=== PATIENT | female | born 1995 | race Two or more races ===

== ENCOUNTER 2024-02-24 18:41 | Emergency (ER) | payer MEDICAID ==
[~2024-02-24] VITALS: Ht 144.8 cm; Wt 35.0 kg
[2024-02-24 18:53] VITALS: BP 124/82; PULSE 71; RESP 17; TEMP 99.1; O2SAT 98
[2024-02-24 19:58] LABS: Basophils # (auto) 0 10 ^3/uL (0-0.2); Basophils % (auto) 0.4 % (0.0-2.0); Eosinophils # (auto) 0 10 ^3/uL (0-0.8); Eosinophils % (auto) 0.4 % (0.0-7.0); Hematocrit 41.2 % (36.0-46.0); Hemoglobin 14.1 g/dL (12.2-16.2); Lymphocytes # (auto) 2.3 10 ^3/uL (0.4-5.4); Lymphocytes % (auto) 23.2 % (10.0-50.0); Mean Corpuscular Hemoglobin 32.3 pg (28.0-32.0); Mean Corpuscular Hgb Conc. 34.2 g/dL (32.0-36.0); Mean Corpuscular Volume 94.2 fL (80.0-100.0); Monocytes # (auto) 0.7 10 ^3/uL (0-1.3); Monocytes % (auto) 7.1 % (0.0-12.0); Neutrophils # (auto) 6.7 10 ^3/uL (1.6-8.6); Neutrophils % (auto) 68.9 % (37.0-80.0); Red Blood Cells 4.37 10^6/uL (4.0-5.20); White Blood Cell 9.8 10^3/uL (4.4-10.8)
[2024-02-24 20:08] LABS: Alanine Aminotransferase 16 U/L (7-40); Albumin 4.8 g/dL (3.2-4.8); Alkaline Phosphatase 45 U/L (46-116); Anion Gap 8 (5-15); Aspartate Aminotransferase 9 U/L (13-40); BUN/Creatinine Ratio 13.9 (10.0-20.0); Bilirubin, Total 0.4 mg/dL (0.2-1.0); Blood Urea Nitrogen 11 mg/dL (9-23); Calcium 9.9 mg/dL (8.7-10.4); Carbon Dioxide 26 mmol/L (20-30); Chloride 107 mmol/L (98-107); Glucose 89 mg/dL (74-106); Potassium 3.9 mmol/L (3.5-5.1); Sodium 141 mmol/L (136-145)
[2024-02-24 20:09] LABS: Total Protein 6.6 g/dL (5.7-8.2)
== END 2024-02-24 21:33 | disposition home or self-care (01) ==
LOC: ER 18:41
DX: M79.662 Pain in left lower leg (principal); Z88.2 Allergy status to sulfonamides
CPT/HCPCS: 36415; 80053; 83605; 85025; 85379; 93971

== ENCOUNTER 2025-04-16 18:58 | Emergency (ER) | payer MEDICAID ==
[~2025-04-16] VITALS: Ht 149.9 cm; Wt 36.0 kg
--- NOTE | 2025-04-16 19:46 | ED.PDOC ---
General HPI Comments 29y F who presents to the ED for chief complaint of abdominal pain. Pt states she has been having diffuse lower abdominal pain for the past 3x days. Pt states she has been having associated dysuria and burning sensation in her lower pelvic area with associated urinary frequency and incontinence. Pt states she went to urgent care for her symptoms and was referred to the ED for further evaluation. Pt states she had a UTI in January 2025 and states it was resistant to Macrobid but states it resolved after pt was given ciprofloxacin. Pt otherwise has noted BP of 111/56 and temp of 97.5 F with otherwise stable vitals of RR 19, heart rate 64 and 02 sat of 98% on room air. Pt otherwise denies nausea, vomiting, diarrhea, fever, cough, chills, hematuria or associated symptoms. Chief Complaint: Abdominal Pain Time Seen by MD: 19:44 Primary Care Provider: UNKNOWN Reviewed notes: Medications, Allergies Allergies: Coded Allergies: Acyclovir (Verified Allergy, Unknown, 04/16/25) Sulfa Antibiotics (Verified Allergy, Unknown, 02/24/24) Home Meds Active Scripts Phenazopyridine HCl (Phenazopyridine Hydrochlo) 200 Mg Tab, 200 MG PO TID PRN, #9 TAB Prn urinary pain Prov:BETHEL TOSCANO MD 04/16/25 Ibuprofen Micronized (Ibuprofen) 600 Mg Tab, 600 MG PO Q6HP PRN, #30 TAB Prn pain. Take with food. 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 Moist mucous membranes.) Neck: Full Range of Motion, Normal Inspection Respiratory: Lungs Clear, No Accessory Muscle Use, No Respiratory Distress, Normal Breath Sounds Cardiovascular: No Edema, No JVD, Regular Rate/Rhythm Breast Exam: Deferred Gastrointestinal: Diffuse, Soft, Tenderness Genitalia: Deferred Pelvic: Deferred Rectal: Deferred Extremities: Normal inspection, Normal range of motion, Non-tender, No pedal edema Neurologic: Alert (Oriented x4), Normal Affect, Normal Mood, Other (Ambulatory) Cerebellar Function: NOT DONE Reflexes: NOT DONE Skin: Dry, Normal Color, Warm Lymphatic: NOT DONE Was a procedure done? Was a procedure done?: No Differential Diagnosis Kidney stone (Female): Musculoskeletal pain, Renal failure Urinary Problem (Female): Appendicitis, Impaction, Pyelonephritis, Urolithi asis, UTI, Other (Gastroenteritis, colitis, diverticulitis, among others) X-Ray, Labs, Meds, VS Vital Signs Date Time Temp Pulse Resp B/P (MAP) Pulse Ox O2 Delivery O2 Flow Rate FiO2 04/17/25 01:08 97.7 65 16 118/79 (92) 99 97.7 04/16/25 18:59 97.5 64 19 111/56 98 97.5 Lab Test 04/16/25 21:36 04/16/25 19:37 Range/Units Urine Color Colorless Yellow Urine Clarity Clear Clear Urine pH 6.5 5.0-9.0 Urine Specific [place] 1.011 1.001-1.035 Urine Protein Negative Negative Urine Ketones Negative Negative Urine Blood Negative Negative /uL Urine Nitrite Negative Negative Urine Bilirubin Negative Negative Urine Urobilinogen Normal Negative mg/dL Urine Leukocyte Esterase 2+ Negative /uL Urine RBC 5 0 - 4 /hpf Urine Microscopic WBC 70 H 0-5 /HPF Urine Squamous Epithelial Cells Few <5 /hpf Urine Amorphous Crystals Few None Seen /hpf Urine Bacteria Few H None Seen /hpf Urine Mucus Few None Seen Urine Glucose Normal Normal mg/dL Urine Test Negative Negative White Blood Count 6.4 4.4-10.8 10^3/uL Red Blood Count 4.45 4.0-5.20 10^6/uL Hemoglobin 14.3 12.2-16.2 g/dL Hematocrit 42.0 36.0-46.0 % Mean Corpuscular Volume 94.4 80.0-100.0 fL Mean Corpuscular Hemoglobin 32.2 H 28.0-32.0 pg Mean Corpuscular Hemoglobin Concent 34.1 32.0-36.0 g/dL Red Cell Distribution Width 13.3 11.8-14.3 % Platelet Count 297 140-450 10^3/uL Mean Platelet Volume 7.7 6.9-10.8 fL Neutrophils (%) (Auto) 60.4 37.0-80.0 % Lymphocytes (%) (Auto) 32.1 10.0-50.0 % Monocytes (%) (Auto) 6.4 0.0-12.0 % Eosinophils (%) (Auto) 0.5 0.0-7.0 % Basophils (%) (Auto) 0.6 0.0-2.0 % Neutrophils # (Auto) 3.8 1.6-8.6 10 ^3/uL Lymphocytes # (Auto) 2.0 0.4-5.4 10 ^3/uL Monocytes # (Auto) 0.4 0-1.3 10 ^3/uL Eosinophils # (Auto) 0 0-0.8 10 ^3/uL Basophils # (Auto) 0 0-0.2 10 ^3/uL Nucleated Red Blood Cells 0.1 % Sodium Level 141 136-145 mmol/L Potassium Level 3.7 3.5-5.1 mmol/L Chloride Level 105 98-107 mmol/L Carbon Dioxide Level 27 20-31 mmol/L Anion Gap 9 5-15 Blood Urea Nitrogen 6 L 9-23 mg/dL Creatinine 0.58 0.550-1.02 mg/dL Glomerular Filtration Rate Calc 126 >90 mL/min BUN/Creatinine Ratio 10.3 10.0-20.0 Serum Glucose 80 74-106 mg/dL Calcium Level 9.5 8.7-10.4 mg/dL Total Bilirubin 0.9 0.2-1.0 mg/dL Aspartate Amino Transferase (AST) 27 13-40 U/L Alanine Aminotransferase (ALT) 17 7-40 U/L Alkaline Phosphatase 48 46-116 U/L Total Protein 7.4 5.7-8.2 g/dL Albumin 5.1 H 3.2-4.8 g/dL PROCEDURE(s): ABPL - CT AB PEL WO CON-NO ORAL OR IV REASON: low abd pain ORDER NUMBER(s): [id number], ACCESSION NUMBER(s): [id number] CLINICAL HISTORY: low abd pain TECHNIQUE: CT of the abdomen and pelvis was performed without IV contrast. This exam was performed according to our departmental dose optimization program. Up-to-date CT equipment and radiation dose reduction techniques are utilized as appropriate. CTDI 5.1 DLP 236.7 COMPARISON: None FINDINGS: Abdomen/Pelvis: The spleen, pancreas, renal glands, kidneys, gallbladder, liver, and uterus athrosis unremarkable. The bladder is not well distended and therefore not well evaluated. The abdominal aorta is normal in course and caliber. There are no significant atherosclerotic calcifications. There is no free intraperitoneal air or fluid. There is no enlarged abdominal pelvic lymph node. There is no bowel wall thickening or dilatation. The appendix is not seen with certainty. But no focal inflammatory process in its expected location. There is a moderate amount of stool within the ascending and transverse colon. Other: The imaged lower thorax is unremarkable. No acute osseous abnormality is evident. Impression: No acute noncontrast CT abnormality in the abdomen and pelvis. X-Ray, Labs, Meds, VS Comment 29-year-old female with no significant past medical history complaining of abdominal pain and dysuria Vitals remarkable for BP 111/56 Exam remarkable for diffuse abdominal tenderness to palpation greatest in the lower abdominal area. No rebound or guarding. Rhythm strip independently interpreted by me: Sinus rhythm, rate 64, no ectopy. CT abdomen and pelvis unremarkable CBC and CMP unremarkable. UA abnormal consistent with UTI. Urine negative Patient treated with the following in the ED: 1 L 0.9 normal saline IV bolus, morphine 4 mg IV, Zofran 4 mg IV, Levaquin 500 mg IV On re-evaluation, pain has improved and vitals were stable. Patient endorsed to the overnight ED physician Dr. Ghosh to follow-up on CT results and re-evaluate. Patient anticipated to be dischargeable if CT unremarkable. Rx Cipro, Zofran, ibuprofen, pyridium Addendum: CT unremarkable. Patient is stable for discharge. Time of 1ST Reevaluation: 23:00 Reevaluation 1ST: Improved Time of 2ND Reevaluation: 00:19 (Dr. ORELLANA instructed me to follow up on CT scan of the abdomen and pelvis and if normal to depart the patient. CT scan report was reviewed which was unremarkable.I went and spoke with the patient. She is nontoxic in appearance. She said that her pain specifically in the suprapubic area. She does not have any unilateral pain to suggest possible ovarian cyst/torsion.) Patient Education/Counseling: Diagnosis, Treatment Family Education/Counseling: No Family Present SEPSIS Sepsis Screen Date sepsis recognized/suspect: Apr 16, 2025 Time Sepsis recognized/suspect: 1858 Recent Procedure: No On Antibiotic Therapy: No Respiratory Rate >20: No Heart Rate >90: No Temp<36 C (96.8 F) or >38.3 C: No SBP <90 or MAP <65 mmHG: No New Acute Mental Status Change: No Is the patient on CPAP, BIPAP,: No Physician Orders Ct Ab Pel Wo Con-No Oral Or Iv (04/16/25 19:41) Vital Signs Date Time Temp Pulse Resp B/P (MAP) Pulse Ox O2 Delivery O2 Flow Rate FiO2 04/17/25 01:08 97.7 65 16 118/79 (92) 99 97.7 04/16/25 18:59 97.5 64 19 111/56 98 97.5 Laboratory Tests Test 04/16/25 19:37 White Blood Count 6.4 10^3/uL (4.4-10.8) Departure 1 Departure Time of Disposition: 23:00 Impression: Primary Impression: UTI (urinary tract infection) Disposition: HOME / SELF CARE / HOMELESS Condition: Stable Additional Instructions: Your blood tests were unremarkable. Your urine test was abnormal, consistent with a urinary tract infection. I have prescribed the patient for pain and nausea, and antibiotics. Follow-up with your primary doctor in 1-2 days. Return to ER for persistent or worsening symptoms. Additional instructions: Please read all instructions provided in this packet carefully. You MUST follow-up with your primary care/family doctor in 1 to 2 days. If you are unable to see your primary care/family doctor, please return to our emergency room for re-assessment and re-evaluation in 1 to 2 days. Return to the emergency room here in our facility or to the nearest ER DAYDAY if your symptoms change or worsen. CONSULTATIONS: you MUST Follow-up for consultation as soon as possible with: -gastroenterology and urology and OB Gyne doctor in 1-2 days. Please call for appointment. You MUST call the consultants office yourself to make an appointment. You may need to arrange that through your insurance and/or your primary/family doctor. If you are unable to see the systems security consultant in 1 to 2 days, you must return to our emergency room (or any other ER of your choice) for re-assessment and re- evaluation. Adequate fluid hydration. Although you have been discharged from the Emergency Department, this does not mean that you have a "clean bill of health". No definitive diagnosis for your symptoms has been made today. It is possible that you are in the process of developing a serious illness. This is why you must return to the ED without fail if any new or worsening symptoms develop. Below is a copy of your radiological report for follow up: [place] [id number] Ph: [phone] DIAGNOSTIC IMAGING Diagnostic Imaging Report : [id number] Signed PATIENT: GARFIELD CARPIO ACCT: [id number] UNIT: [id number] : 1995 LOC: ER ROOM / BED: / AGE / SEX: 29 / F ADM STATUS: REG ER SERVICE 40 ORDERING PHYSICIAN: BETHEL TOSCANO MD PROCEDURE(s): ABPL - CT AB PEL WO CON-NO ORAL OR IV REASON: low abd pain ORDER NUMBER(s): [id number], ACCESSION NUMBER(s): [id number] CLINICAL HISTORY: low abd pain TECHNIQUE: CT of the abdomen and pelvis was performed without IV contrast. This exam was performed according to our departmental dose optimization program. Up-to-date CT equipment and radiation dose reduction techniques are utilized as appropriate. CTDI 5.1 DLP 236.7 COMPARISON: None FINDINGS: Abdomen/Pelvis: The spleen, pancreas, renal glands, kidneys, gallbladder, liver, and uterus athrosis unremarkable. The bladder is not well distended and therefore not well evaluated. The abdominal aorta is normal in course and caliber. There are no significant atherosclerotic calcifications. There is no free intraperitoneal air or fluid. There is no enlarged abdominal pelvic lymph node. There is no bowel wall thickening or dilatation. The appendix is not seen with certainty. But no focal inflammatory process in its expected location. There is a moderate amount of stool within the ascending and transverse colon. Other: The imaged lower thorax is unremarkable. No acute osseous abnormality is evident. Impression: No acute noncontrast CT abnormality in the abdomen and pelvis. ATED BY: JUVENAL GUERIN MD DICTATED DATE/TIME: 04/16/252331 SIGNED BY: JUVENAL GUERIN MD SIGNED DATE/TIME: 04/16/252331 CC: e-Prescriptions Phenazopyridine HCl (Phenazopyridine Hydrochlo) 200 Mg Tab 200 MG PO TID PRN, #9 TAB Prn urinary pain Prov: BETHEL TOSCANO MD 04/16/25 Ibuprofen Micronized (Ibuprofen) 600 Mg Tab 600 MG PO Q6HP PRN, #30 TAB Prn pain. Take with food. Prov: BETHEL TOSCANO MD 04/16/25 Ondansetron Odt 4MG Tab (ZOFRAN PO) 4 Mg Tb 4 MG PO TID PRN, #20 TAB Prn nausea/vomiting ODT TAB-DISSOLVE IN MOUTH, THEN SWALLOW Prov: BETHEL TOSCANO MD 04/16/25 Ciprofloxacin Hcl (Cipro) 500 Mg Tab 1 TAB PO BID for 10 Days, #20 TAB Prov: BETHEL TOSCANO MD 04/16/25 Discharged With: Relative Critical Care Note Critical Care Time?: No Stability Stability form required: No Heart Score Heart Score: Heart Score Response (Comments) Value History N/A 0 EKG N/A 0 Age N/A 0 Risk Factors N/A 0 Troponin N/A 0 Total 0 I personally scribed for BETHEL TOSCANO MD ([email or web address]) on 04/16/25 at 19:46. Electronically submitted by Bg Dobbins ([email or web address]). BETHEL TOSCANO MD Apr 16, 2025 19:46 JOVANI GHOSH DO Apr 17, 2025 00:21
[2025-04-16 20:06] LABS: Hematocrit 42.0 % (36.0-46.0); Hemoglobin 14.3 g/dL (12.2-16.2); Mean Corpuscular Hemoglobin 32.2 pg (28.0-32.0); Mean Corpuscular Volume 94.4 fL (80.0-100.0); Nucleated Red Blood Cells % 0.1 %
[2025-04-16 20:17] LABS: Alanine Aminotransferase 17 U/L (7-40); Alkaline Phosphatase 48 U/L (46-116); Anion Gap 9 (5-15); BUN/Creatinine Ratio 10.3 (10.0-20.0); Bilirubin, Total 0.9 mg/dL (0.2-1.0); Calcium 9.5 mg/dL (8.7-10.4); Carbon Dioxide 27 mmol/L (20-31); Chloride 105 mmol/L (98-107); Glucose 80 mg/dL (74-106); Potassium 3.7 mmol/L (3.5-5.1); Sodium 141 mmol/L (136-145); Total Protein 7.4 g/dL (5.7-8.2)
[2025-04-16 20:20] LABS: Albumin 5.1 g/dL (3.2-4.8); Blood Urea Nitrogen 6 mg/dL (9-23)
[2025-04-16 22:58] LABS: Urine Amorphous Crystal FEW /hpf (None Seen); Urine Protein, UAD Negative (Negative)
[2025-04-16] MEDS ORDERED: PHEN-922 PO (23:05)
[2025-04-16] MEDS ORDERED: CIPR-173 PO (23:05)
[2025-04-16] MEDS ORDERED: ZOFR4T PO (23:05)
[2025-04-16] MEDS ORDERED: IBUP1TAB5 PO (23:05)
--- NOTE | 2025-04-16 23:35 | DVH ---
CLINICAL HISTORY: low abd pain TECHNIQUE: CT of the abdomen and pelvis was performed without IV contrast. This exam was performed ac cording to our departmental dose optimization program. Up-to-date CT equipment and radiation dose red uction techniques are utilized as appropriate. CTDI 5.1 DLP 236.7 COMPARISON: None FINDINGS: Abdomen/Pelvis: The spleen, pancreas, renal glands, kidneys, gallbladder, liver, and uterus athrosis unremarkable. Th e bladder is not well distended and therefore not well evaluated. The abdominal aorta is normal in course and caliber. There are no significant atherosclerotic calcifi cations. There is no free intraperitoneal air or fluid. There is no enlarged abdominal pelvic lymph node. There is no bowel wall thickening or dilatation. The appendix is not seen with certainty. But no foca l inflammatory process in its expected location. There is a moderate amount of stool within the ascen ding and transverse colon. Other: The imaged lower thorax is unremarkable. No acute osseous abnormality is evident. Impression: No acute noncontrast CT abnormality in the abdomen and pelvis.
[2025-04-17 01:08] VITALS: BP 118/79; PULSE 65; RESP 16; TEMP 97.7; O2SAT 99
[2025-04-17] MEDS: SODIUM CHLORIDE 0.9% 1,000 ML IV ONE (01:22)
[2025-04-17] MEDS: MORPHINE SULFATE 4 MG/ML SYR/VIAL IV ONE (01:22)
[2025-04-17] MEDS: ONDANSETRON HCL 4 MG/2 ML VIAL IV ONE (01:23)
== END 2025-04-17 01:23 | disposition home or self-care (01) ==
LOC: ER 18:58
DX: N39.0 Urinary tract infection, site not specified (principal); Z88.2 Allergy status to sulfonamides; Z88.8 Allergy status to other drugs, medicaments and biological substances
CPT/HCPCS: 36415; 74176; 80053; 81001; 81025; 85025